=== PATIENT | female | born 2000 | race Caucasian/White ===

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

== ENCOUNTER 2019-01-25 09:02 | Day surgery (SDC) | payer BC, OTHER ==
[2019-01-23 11:32] VITALS: BMI 20.5
--- NOTE | 2019-01-24 18:56 | P.HPOB ---
History of Present Illness H&P Date: 01/24/19 Chief Complaint: Pelvic pain Patient is a 19-year-old female with complaint of chronic pelvic pain. On initial evaluation she was having pain that was intermittent sharp and stabbing with irregular spotting every month for approximately 3 weeks. She has been taking oral contraceptives with no relief or change in symptomatology as well as nonsteroidal anti-inflammatories. Ultrasounds from before also showed potential for a polyp in her cervix but none was seen on subsequent ultrasound and I didn't see any on exam. After lengthy discussion and follow-up evaluation approximately 3 months following control pill NSAIDs she is interested in diagnostic laparoscopy to have a diagnosis of that we can produce a long-term treatment plan. We did discuss possibly changing medications or and P recovery Lupron Depo-Provera she would prefer a laparoscopy to have a diagnosis, we did discuss possible ablation of endometrial implants if there were a few endometrial implants but they're significant pathology we would either rescheduled for a later date for a robotic-assisted procedure were prefer her to pelvic pain specialist. Risks/benefits/alternatives to this procedure were discussed with the patient in detail and did include but were not limited to bleeding and infection, damage to bladder, damage to bowel, vascular degrees nerve injuries potential fallopian tube injury based on endometriosis if there is approximate 2 fallopian tube. Ureteral injuries were also possibility as's with any surgical procedure. Past Medical History Past Medical History: Asthma, GERD/Reflux, Hearing Disorder / Deafness Additional Past Medical History / Comment(s): Mononucleosis, recent cellulitis and dermatitis. Difficulty hearing sometimes. History of Any Multi-Drug Resistant Organisms: None Reported Past Surgical History: Appendectomy, Ear Surgery, Tonsillectomy Additional Past Surgical History / Comment(s): Tubes in ears X5, wisdom teeth removed. Past Anesthesia/Blood Transfusion Reactions: No Reported Reaction Past Psychological History: ADD/ADHD, Anxiety, Depression Smoking Status: Never smoker Past Alcohol Use History: None Reported Past Drug Use History: None Reported - Past Family History Mother Family Medical History: Blood Disorder, Cancer, CVA/TIA, Deep Vein Thrombosis (DVT), Pulmonary Embolus Medications and Allergies Home Medications Medication Instructions Recorded Confirmed Type Albuterol Sulfate [Ventolin HFA] 1 - 2 puff INHALATION Q6H PRN 09/09/13 01/23/19 History Atomoxetine HCl [Strattera] 40 mg PO QAM 01/23/19 01/23/19 History Control Pill 1 tab PO HS 01/23/19 01/23/19 History Allergies Allergy/AdvReac Type Severity Reaction Status Date / Time amoxicillin [Amoxicillin] Allergy Rash/Hives Verified 01/23/19 11:08 Penicillins Allergy Rash/Hives Verified 01/23/19 11:08 Exam Osteopathic Statement: *. No significant issues noted on an osteopathic structural exam other than those noted in the History and Physical/Consult. - OBG Physical Exam Breast: both: normal (no masses) Abdomen: bowel sounds normal, no diffuse tenderness, no bruit present, no guarding noted, no hepatomegaly, no splenomegaly, no mass Vulva: both: normal Vagina: normal moisture, no discharge Cervix: no lesion, no discharge Uterus: normal size, normal contour Adnexa: both: normal Anus/Rectum: normal perianal skin, no rectal mass, no hemorrhoids, heme negative
[~2019-01-25 09:02] MED LIST: DEXAMETHASONE SOD PHOSPHATE 10 MG/ML 1 ML VIAL IV ONE; LACTATED RINGERS 1,000 ML IV SCH; LIDOCAINE 1% 20 ML VIAL (10MG/ML) FOR IV START INTRADERMA PRN; MIDAZOLAM 2 MG/2 ML VIAL IV PRN; ONDANSETRON 4 MG/2 ML VIAL IVP ONE; Pre Op ABX Message 1 EACH MISC MISCELLANE ONE; fentaNYL (PF) 50 MCG/ML 2 ML AMP IV PRN
[2019-01-25] MEDS ORDERED: SCOPOLAMINE 1.5MG/72HR PATCH TRANSDERM ONE (10:09)
[2019-01-25] MEDS ORDERED: MIDAZOLAM 2 MG/2 ML VIAL ONE (10:41)
[2019-01-25] MEDS ORDERED: GLYCOPYRROLATE 0.2 MG/ML 2 ML VIAL ONE (10:41)
[2019-01-25] MEDS ORDERED: ROCURONIUM BROMIDE 10 MG/ML 10 ML VIAL IV ONE (10:41)
[2019-01-25] MEDS ORDERED: LIDOCAINE 1% INJ 10MG/ML (20 ML MDV) ONE (10:41)
[2019-01-25] MEDS ORDERED: PROPOFOL 10 MG/ML 20 ML VIAL IV ONE (10:41)
[2019-01-25] MEDS ORDERED: fentaNYL (PF) 50 MCG/ML 2 ML AMP ONE (10:41)
[2019-01-25] MEDS ORDERED: NEOSTIGMINE 1 MG/ML 10 ML VIAL ONE (10:41)
[2019-01-25] MEDS ORDERED: BUPIVACAINE (PF) 0.25% 30 ML VIAL SQ ONE (11:25)
--- NOTE | 2019-01-25 11:46 | P.OP ---
Date of Procedure: 01/25/19 Preoperative Diagnosis: Pelvic pain and possible endometrial polyp Postoperative Diagnosis: Same with stage I endometriosis. No polyp noted Procedure(s) Performed: Diagnostic laparoscopy with electro fulguration of endometrial implants and hysteroscopy with gentle exploration for polyps Anesthesia: WEN Surgeon: Yovani Stewart Estimated Blood Loss (ml): 5 Urine output (ml): 100 Pathology: other (Endometrial biopsy) Condition: stable Disposition: same day Operative Findings: 3 separate small endometrial implants to dark red in 1 lesion were noted in the posterior cul-de-sac some mild scarring along the left paraovarian area, however no Clifford Ivana changes Description of Procedure: patient states the operating suite where a general anesthetic was found be adequate. She was prepped and draped in normal sterile fashion and placed in the dorsal lithotomy position. Initially a speculum was inserted into the vagina and the anterior lip surface identified grasped with an Allis clamp. It was then dilated and a uterine manipulator was inserted without difficulty. Red rubber catheter was then used to drain the bladder of urine and close were changed. Attention was then turned to abdominal portion procedure where 2 mL of quarter percent Marcaine was injected periumbilically and through this injected anesthetic a 5 mm skin incision was made. This incision was then entered with a 5 mm trocar and sleeve under direct visualization with an optical trocar. Once peritoneal placement was assured gas was allowed to fully insufflate the abdomen and patient's placement steep Trendelenburg position. Second 5 mm skin incision was then made in the midline 3 cm above the pubic symphysis and 5 mm port and sleeve were inserted through this incision under direct visualization. Once this was completed complete evaluation the pelvis and abdomen was performed. It is still area was well healed from her prior surgery liver and gallbladder appeared unremarkable there was some mild scarring along the left paraovarian fossa but no Clifford Ivana changes. Right ovarian fossa was normal. In the posterior cul-de-sac there was one clear vesicular lesion between the uterosacral ligaments and then deep in the cul-de-sac along the just behind the cervical area there were 2 dark red endometrial implants. A J-hook was then brought in and like to cautery of these lesions was performed. It is noted that the uterus is somewhat boggy. This could be technical support representative of adenomyosis but also may simply be where she is at in her cycle. If this is adenomyosis this is a challenging case as she is very young and has not had a baby and would need to likely find alternatives to control her pain. No other gross findings are noted therefore incidents removed and gas was allowed to expel from the abdomen. 5 deep breaths were provided during this process and then ports were removed and incisions were closed subcuticularly with 4-0 Vicryl. Another 5 or 6 mL of quarter percent Marcaine was injected around these incisions. Once completed we did return to the vagina manipulator was removed speculum was reinserted and Allis clamp was used to grasp the cervix. Cervix was dilated again minimally and a hysteroscope was inserted and direct visualization of endometrium was done. No pathologies noted no polyps were noted in the endometrium all of the tissue was proliferative. Polyp forceps was then used following removal of the camera to gently pull some of the proliferative tissue and make sure that there was no polyp that couldn't be visualized. This tissue was collected placed on Telfa and sent to pathology for evaluation. Once this was accomplished all instruments removed. Sponge, lap, needle counts were correct 2. Patient was then taken to the recovery room in stable and satisfactory condition. Plan - Discharge Summary Discharge Rx Participant: No New Discharge Prescriptions: New Ibuprofen [Motrin] 600 mg PO Q6HR PRN #30 tab PRN Reason: Pain HYDROcodone/APAP 5-325MG [[place] 5-325] 1 tab PO Q4HR PRN #30 tab PRN Reason: Pain No Action Albuterol Sulfate [Ventolin HFA] 1 - 2 puff INHALATION Q6H PRN PRN Reason: Shortness Of Breath Control Pill 1 tab PO HS Atomoxetine HCl [Strattera] 40 mg PO QAM Discharge Medication List Albuterol Sulfate [Ventolin HFA] 1 - 2 puff INHALATION Q6H PRN 09/09/13 [History] Atomoxetine HCl [Strattera] 40 mg PO QAM 01/23/19 [History] Control Pill 1 tab PO HS 01/23/19 [History] HYDROcodone/APAP 5-325MG [[place] 5-325] 1 tab PO Q4HR PRN #30 tab 01/25/19 [Rx] Ibuprofen [Motrin] 600 mg PO Q6HR PRN #30 tab 01/25/19 [Rx] Follow up Appointment(s)/Referral(s): Yovani Stewart DO [Doctor of Osteopathic Medicine] - 10 Days Patient Instructions/Handouts: *Surgery [facility] - Scopalamine Patch Instructions Activity/Diet/Wound Care/Special Instructions: No heavy lifting today, limit stairs and no driving today pelvic rest. If any high temperatures, heavy bleeding, or severe pain call my office Discharge Disposition: HOME SELF-CARE
[2019-01-25 12:09] VITALS: TEMP 97.6
[2019-01-25] MEDS: HYDROmorphone 0.5 MG/0.5 ML SYRINGE IVP PRN ×4 (12:22→12:47)
[2019-01-25] MEDS ORDERED: LACTATED RINGERS 1,000 ML IV ONE (12:29)
[2019-01-25] MEDS ORDERED: diphenhydrAMINE 50 MG/ML 1 ML VIAL IVP ONE (12:44)
[2019-01-25] MEDS ORDERED: MIDAZOLAM (PF) 2 MG/2 ML VIAL IVP ONE (12:55)
[2019-01-25] MEDS ORDERED: fentaNYL (PF) 50 MCG/ML 2 ML AMP IVP ONE (12:57)
[2019-01-25 13:01] VITALS: RESP 16
[2019-01-25] MEDS ORDERED: HYDROcodone/APAP 5-325MG 1 EACH TAB PO ONE (14:24)
[2019-01-25 15:07] VITALS: BP 101/65; PULSE 75
== END 2019-01-25 16:13 | disposition home or self-care (01) ==
LOC: OR 09:02
PROVIDERS: ATTEND Obstetrics & Gynecology
DX: N84.1 Polyp of cervix uteri (principal); N80.9 Endometriosis, unspecified; J45.909 Unspecified asthma, uncomplicated; K21.9 Gastro-esophageal reflux disease without esophagitis; H91.90 Unspecified hearing loss, unspecified ear; F90.9 Attention-deficit hyperactivity disorder, unspecified type; F41.9 Anxiety disorder, unspecified; F32.9 Major depressive disorder, single episode, unspecified; Z79.3 Long term (current) use of hormonal contraceptives; Z79.899 Other long term (current) drug therapy; Z97.5 Presence of (intrauterine) contraceptive device; Z88.0 Allergy status to penicillin; Z88.5 Allergy status to narcotic agent
CPT/HCPCS: 88305; 84703; 58558; 58662; J2250 ×2; J1200; J1100; J2710; J2405; J2001; J3010; J2704; J1170

== ENCOUNTER 2020-04-15 15:30 | Emergency (ER) | payer BC, OTHER ==
[2020-04-15 15:36] VITALS: PULSE 102; TEMP 98.2
[2020-04-15] MEDS ORDERED: METOCLOPRAMIDE 5 MG/ML 2 ML VIAL IVP STA (16:03)
[2020-04-15] MEDS ORDERED: diphenhydrAMINE 50 MG/ML 1 ML VIAL IVP STA (16:03)
[2020-04-15] MEDS ORDERED: SODIUM CHLORIDE 0.9% 1,000 ML IV STA (16:05)
[2020-04-15 16:37] LABS: Basophils # (A) 0.1 k/uL (0-0.2); Basophils % (A) 1 %; Eosinophils # (A) 0.2 k/uL (0-0.7); Eosinophils % (A) 2 %; HCT 44.7 % (34.0-46.0); HGB 14.8 gm/dL (11.4-16.0); Lymphocytes # (A) 2.2 k/uL (1.0-4.8); Lymphocytes % (A) 20 %; MCV 84.6 fL (80.0-100.0); Monocytes # (A) 0.5 k/uL (0-1.0); Monocytes % (A) 4 %; Neutrophils # (A) 7.7 k/uL (1.3-7.7); Neutrophils % (A) 72 %; Platelet Count 330 k/uL (150-450); RBC 5.29 m/uL (3.80-5.40); WBC 10.7 k/uL (3.8-10.6)
[2020-04-15 16:46] LABS: ALT 13 U/L (4-34); AST 24 U/L (14-36); African American GFR (CKD) >90 (>60 ml/min/1.73 sqM); Albumin 4.7 g/dL (3.5-5.0); Alkaline Phosphatase 71 U/L (38-126); Anion Gap 8 mmol/L; Blood Urea Nitrogen 9 mg/dL (7-17); Calcium 10.1 mg/dL (8.4-10.2); Carbon Dioxide 26 mmol/L (22-30); Chloride 105 mmol/L (98-107); Glucose 80 mg/dL (74-99); Non-African American GFR(CKD) >90 (>60 ml/min/1.73 sqM); Potassium 4.4 mmol/L (3.5-5.1); Sodium 139 mmol/L (137-145); Total Bilirubin 0.6 mg/dL (0.2-1.3)
[2020-04-15 17:15] LABS: Amorphous Sediment,Urine Rare /hpf; Appearance,Urine Clear (Clear); Bacteria,Urine Few /hpf; Bilirubin,Urine Negative (Negative); Blood,Urine Trace (Negative); Color,Urine Yellow; Glucose,Urine (UA) Negative (Negative); Hyaline Casts,Urine 1 /lpf (0-2); Ketones,Urine Negative (Negative); Leukocyte Esterase,Urine Negative (Negative); Mucus,Urine Many /hpf; Nitrite,Urine Negative (Negative); Protein,Urine Trace (Negative); RBC,Urine 3 /hpf (0-5); Specific Gravity,Urine 1.025 (1.001-1.035); Squamous Epithelial Cell,Urine 1 /hpf (0-4); Urobilinogen,Urine <2.0 mg/dL (<2.0); WBC,Urine 4 /hpf (0-5)
--- NOTE | 2020-04-15 17:15 | ED ---
General Adult HPI - General Chief complaint: Recheck/Abnormal Lab/Rx Stated complaint: Tremors,Headache Time Seen by Provider: 04/15/20 15:39 Source: patient Mode of arrival: ambulatory Limitations: no limitations - History of Present Illness Initial comments: Patient is a 20-year-old female with history of migraines presenting to the emergency department with multiple chief complaints. Patient states she was started on nexplenon since March. Patient reports over the last week she has developed some muscle twitches in her bilateral upper extremities along with a gradual onset headache. Without any photosensitivity, nausea or vomiting or visual disturbances. Patient went to see today who was concerned by her symptoms and removed the nexplenon. Patient was advised to come to emergency department for evaluation. Patient states this is not the worst headache of her life. Patient states she has been slightly more forgetful over the last week but denies any gait instability. She also reports having heart palpitations. Patient denies any chest pain or shortness of breath, one-sided weakness or paresthesias. - Related Data Home Medications Medication Instructions Recorded Confirmed Albuterol Sulfate [Ventolin HFA] 1 - 2 puff INHALATION Q6H PRN 09/09/13 01/25/19 Atomoxetine HCl [Strattera] 40 mg PO QAM 01/23/19 01/25/19 Control Pill 1 tab PO HS 01/23/19 01/25/19 Previous Rx's Medication Instructions Recorded HYDROcodone/APAP 5-325MG [[place] 1 tab PO Q4HR PRN #30 tab 01/25/19 5-325] Ibuprofen [Motrin] 600 mg PO Q6HR PRN #30 tab 01/25/19 Ondansetron Odt [Zofran Odt] 4 mg PO Q8HR PRN #10 tab 04/15/20 Allergies Allergy/AdvReac Type Severity Reaction Status Date / Time amoxicillin [Amoxicillin] Allergy Rash/Hives Verified 04/15/20 15:36 Penicillins Allergy Rash/Hives Verified 04/15/20 15:36 morphine AdvReac Nausea & Verified 04/15/20 15:36 Vomiting Review of Systems ROS Statement: Those systems with pertinent positive or pertinent negative responses have been documented in the HPI. ROS Other: All systems not noted in ROS Statement are negative. Past Medical History Past Medical History: Asthma, GERD/Reflux, Hearing Disorder / Deafness Additional Past Medical History / Comment(s): Mononucleosis, recent cellulitis and dermatitis. Difficulty hearing sometimes. History of Any Multi-Drug Resistant Organisms: None Reported Past Surgical History: Appendectomy, Ear Surgery, Tonsillectomy Additional Past Surgical History / Comment(s): Tubes in ears X5, wisdom teeth removed. Past Anesthesia/Blood Transfusion Reactions: No Reported Reaction Past Psychological History: ADD/ADHD, Anxiety, Depression Smoking Status: Never smoker Past Alcohol Use History: None Reported Past Drug Use History: None Reported - Past Family History Mother Family Medical History: Blood Disorder, Cancer, CVA/TIA, Deep Vein Thrombosis (DVT), Pulmonary Embolus General Exam Limitations: no limitations General appearance: alert, in no apparent distress Head exam: Present: atraumatic, normocephalic, normal inspection Eye exam: Present: normal appearance, PERRL, EOMI Pupils: Present: normal accommodation ENT exam: Present: normal exam, normal oropharynx, mucous membranes moist, TM's normal bilaterally, normal external ear exam Neck exam: Present: normal inspection, full ROM. Absent: tenderness Respiratory exam: Present: normal lung sounds bilaterally. Absent: respiratory distress, wheezes, rales Cardiovascular Exam: Present: regular rate, normal rhythm, normal heart sounds. Absent: systolic murmur, diastolic murmur GI/Abdominal exam: Present: soft. Absent: distended, tenderness, guarding, rebound Extremities exam: Present: normal inspection, full ROM, normal capillary refill, other (+2 ulnar and radial possible laterally. +2 dorsalis pedis obstructive as bilateral.). Absent: tenderness, pedal edema, joint swelling, calf tenderness Back exam: Present: normal inspection, full ROM. Absent: tenderness, CVA tenderness (R), CVA tenderness (L) Neurological exam: Present: alert, oriented X3, CN II-XII intact, normal gait Expanded Patient oriented to: Present: person, place, time Speech: Present: fluid speech Cranial nerves: EOM's Intact: Normal, Gag Reflex: Normal, Tongue Deviation: Normal, Nystagmus: Normal, Facial Sensation: Normal Cerebellar function: Finger to Nose: Normal Upper motor neuron: Pronator Drift: Normal Sensory exam: Upper Extremity Light Touch: Normal, Lower Extremity Light Touch: Normal Motor strength exam: RUE: 5, LUE: 5, RLE: 5, LLE: 5 DTR: Bicep (R): 4+, Bicep (L): 4+, Tricep (R): 4+, Tricep (L): 4+, Patellar (R): 4+, Patellar (L): 4+, Achilles Tendon (R): 4+, Achilles Tendon (L): 4+ Psychiatric exam: Present: normal affect, normal mood. Absent: depressed, agitated Skin exam: Present: warm, dry, intact, normal color Course Vital Signs 04/15/20 04/15/20 04/15/20 15:32 17:00 18:48 Temperature 98.2 F 98.2 F Pulse Rate 102 H 102 H Respiratory 20 18 18 Rate Blood Pressure 155/100 130/90 120/71 O2 Sat by Pulse 99 100 99 Oximetry EKG Findings - EKG Comments: EKG Findings:: Sinus rhythm, S1 Q3 T3. Trickily rate 84, [place] 152, QRS 84, QTC 411 Medical Decision Making - Medical Decision Making 20-year-old female with history of migraines presenting to the emergency depart ment with multiple chief complaints. On physical examination, patient did appear to have bilateral upper extremity sudden twitches. Although this did not appear to be like a typical tremor. Neurological examination is unremarkable. EKG did show changes [id number] so d-dimer was obtained which was negative. Patient did not have any chest pain or shortness of breath. CBC and CMP is unremarkable. Coags within normal limits. Troponin is negative. UA is unremarkable and patient is not . CT of the brain obtained shows no acute processes. Patient was given IV fluids Reglan and Benadryl. On reevaluation, patient reports improvement in symptoms and states her headache has resolved. The obvious muscle twitches is also completely resolved. Strict return parameters were thoroughly discussed with patient is understanding and agreeable. Case discussed with who is agreeable with the discharge plan. - Lab Data Result diagrams: 04/15/20 16:24 04/15/20 16:29 Lab Results 04/15/20 04/15/20 04/15/20 Range/Units 16:24 16:29 16:29 WBC 10.7 H (3.8-10.6) k/uL RBC 5.29 (3.80-5.40) m/uL Hgb 14.8 (11.4-16.0) gm/dL Hct 44.7 (34.0-46.0) % MCV 84.6 (80.0-100.0) fL MCH 28.0 (25.0-35.0) pg MCHC 33.0 (31.0-37.0) g/dL RDW 13.0 (11.5-15.5) % Plt Count 330 (150-450) k/uL MPV 7.0 Neutrophils % 72 % Lymphocytes % 20 % Monocytes % 4 % Eosinophils % 2 % Basophils % 1 % Neutrophils # 7.7 (1.3-7.7) k/uL Lymphocytes # 2.2 (1.0-4.8) k/uL Monocytes # 0.5 (0-1.0) k/uL Eosinophils # 0.2 (0-0.7) k/uL Basophils # 0.1 (0-0.2) k/uL PT 10.0 (9.0-12.0) sec INR 1.0 (<1.2) APTT 20.9 L (22.0-30.0) sec D-Dimer (<0.60) mg/L FEU Sodium 139 (137-145) mmol/L Potassium 4.4 (3.5-5.1) mmol/L Chloride 105 (98-107) mmol/L Carbon Dioxide 26 (22-30) mmol/L Anion Gap 8 mmol/L BUN 9 (7-17) mg/dL Creatinine 0.52 (0.52-1.04) mg/dL Est GFR (CKD-EPI)AfAm >90 (>60 ml/min/1.73 sqM) Est GFR (CKD-EPI)NonAf >90 (>60 ml/min/1.73 sqM) Glucose 80 (74-99) mg/dL Calcium 10.1 (8.4-10.2) mg/dL Total Bilirubin 0.6 (0.2-1.3) mg/dL AST 24 (14-36) U/L ALT 13 (4-34) U/L Alkaline Phosphatase 71 (38-126) U/L Troponin I (0.000-0.034) ng/mL Total Protein 8.0 (6.3-8.2) g/dL Albumin 4.7 (3.5-5.0) g/dL Urine Color Urine Appearance (Clear) Urine pH (5.0-8.0) Ur Specific [place] (1.001-1.035) Urine Protein (Negative) Urine Glucose (UA) (Negative) Urine Ketones (Negative) Urine Blood (Negative) Urine Nitrite (Negative) Urine Bilirubin (Negative) Urine Urobilinogen (<2.0) mg/dL Ur Leukocyte Esterase (Negative) Urine RBC (0-5) /hpf Urine WBC (0-5) /hpf Ur Squamous Epith Cells (0-4) /hpf Amorphous Sediment (None) /hpf Urine Bacteria (None) /hpf Hyaline Casts (0-2) /lpf Urine Mucus (None) /hpf Urine HCG, Qual (Not Detectd) 04/15/20 04/15/20 04/15/20 Range/Units 16:29 16:29 16:38 WBC (3.8-10.6) k/uL RBC (3.80-5.40) m/uL Hgb (11.4-16.0) gm/dL Hct (34.0-46.0) % MCV (80.0-100.0) fL MCH (25.0-35.0) pg MCHC (31.0-37.0) g/dL RDW (11.5-15.5) % Plt Count (150-450) k/uL MPV Neutrophils % % Lymphocytes % % Monocytes % % Eosinophils % % Basophils % % Neutrophils # (1.3-7.7) k/uL Lymphocytes # (1.0-4.8) k/uL Monocytes # (0-1.0) k/uL Eosinophils # (0-0.7) k/uL Basophils # (0-0.2) k/uL PT (9.0-12.0) sec INR (<1.2) APTT (22.0-30.0) sec D-Dimer 0.40 (<0.60) mg/L FEU Sodium (137-145) mmol/L Potassium (3.5-5.1) mmol/L Chloride (98-107) mmol/L Carbon Dioxide (22-30) mmol/L Anion Gap mmol/L BUN (7-17) mg/dL Creatinine (0.52-1.04) mg/dL Est GFR (CKD-EPI)AfAm (>60 ml/min/1.73 sqM) Est GFR (CKD-EPI)NonAf (>60 ml/min/1.73 sqM) Glucose (74-99) mg/dL Calcium (8.4-10.2) mg/dL Total Bilirubin (0.2-1.3) mg/dL AST (14-36) U/L ALT (4-34) U/L Alkaline Phosphatase (38-126) U/L Troponin I <0.012 (0.000-0.034) ng/mL Total Protein (6.3-8.2) g/dL Albumin (3.5-5.0) g/dL Urine Color Yellow Urine Appearance Clear (Clear) Urine pH 6.0 (5.0-8.0) Ur Specific [place] 1.025 (1.001-1.035) Urine Protein Trace H (Negative) Urine Glucose (UA) Negative (Negative) Urine Ketones Negative (Negative) Urine Blood Trace H (Negative) Urine Nitrite Negative (Negative) Urine Bilirubin Negative (Negative) Urine Urobilinogen <2.0 (<2.0) mg/dL Ur Leukocyte Esterase Negative (Negative) Urine RBC 3 (0-5) /hpf Urine WBC 4 (0-5) /hpf Ur Squamous Epith Cells 1 (0-4) /hpf Amorphous Sediment Rare H (None) /hpf Urine Bacteria Few H (None) /hpf Hyaline Casts 1 (0-2) /lpf Urine Mucus Many H (None) /hpf Urine HCG, Qual (Not Detectd) 04/15/20 Range/Units 16:38 WBC (3.8-10.6) k/uL RBC (3.80-5.40) m/uL Hgb (11.4-16.0) gm/dL Hct (34.0-46.0) % MCV (80.0-100.0) fL MCH (25.0-35.0) pg MCHC (31.0-37.0) g/dL RDW (11.5-15.5) % Plt Count (150-450) k/uL MPV Neutrophils % % Lymphocytes % % Monocytes % % Eosinophils % % Basophils % % Neutrophils # (1.3-7.7) k/uL Lymphocytes # (1.0-4.8) k/uL Monocytes # (0-1.0) k/uL Eosinophils # (0-0.7) k/uL Basophils # (0-0.2) k/uL PT (9.0-12.0) sec INR (<1.2) APTT (22.0-30.0) sec D-Dimer (<0.60) mg/L FEU Sodium (137-145) mmol/L Potassium (3.5-5.1) mmol/L Chloride (98-107) mmol/L Carbon Dioxide (22-30) mmol/L Anion Gap mmol/L BUN (7-17) mg/dL Creatinine (0.52-1.04) mg/dL Est GFR (CKD-EPI)AfAm (>60 ml/min/1.73 sqM) Est GFR (CKD-EPI)NonAf (>60 ml/min/1.73 sqM) Glucose (74-99) mg/dL Calcium (8.4-10.2) mg/dL Total Bilirubin (0.2-1.3) mg/dL AST (14-36) U/L ALT (4-34) U/L Alkaline Phosphatase (38-126) U/L Troponin I (0.000-0.034) ng/mL Total Protein (6.3-8.2) g/dL Albumin (3.5-5.0) g/dL Urine Color Urine Appearance (Clear) Urine pH (5.0-8.0) Ur Specific [place] (1.001-1.035) Urine Protein (Negative) Urine Glucose (UA) (Negative) Urine Ketones (Negative) Urine Blood (Negative) Urine Nitrite (Negative) Urine Bilirubin (Negative) Urine Urobilinogen (<2.0) mg/dL Ur Leukocyte Esterase (Negative) Urine RBC (0-5) /hpf Urine WBC (0-5) /hpf Ur Squamous Epith Cells (0-4) /hpf Amorphous Sediment (None) /hpf Urine Bacteria (None) /hpf Hyaline Casts (0-2) /lpf Urine Mucus (None) /hpf Urine HCG, Qual Not Detected (Not Detectd) Disposition Clinical Impression: Headache Disposition: HOME SELF-CARE Condition: Stable Instructions (If sedation given, give patient instructions): Migraine Headache (ED) Additional Instructions: Take medication as directed. Follow with her primary care physician. Return to emergency department if symptoms worsen. Prescriptions: Ondansetron Odt [Zofran Odt] 4 mg PO Q8HR PRN #10 tab PRN Reason: Nausea Is patient prescribed a controlled substance at d/c from ED?: No Referrals: Mikey Anaya MD [Primary Care Provider] - 1-2 days Time of Disposition: 18:30
[2020-04-15 17:20] LABS: Partial Thromboplastin Time 20.9 sec (22.0-30.0)
[2020-04-15 17:27] VITALS: RESP 18
--- NOTE | 2020-04-15 17:46 | CT ---
EXAMINATION TYPE: CT brain wo con DATE OF EXAM: 04/15/2020 COMPARISON: CT brain February 04, 2015 HISTORY: headache CT DLP: 996 mGycm. Automated Exposure Control for Dose Reduction was Utilized. TECHNIQUE: CT scan of the head is performed without contrast. FINDINGS: There is no acute intracranial hemorrhage, mass effect, or midline shift identified. The ventricles and sulci are within normal limits in size. Becker-white matter differentiation is maintai silke. Stable slightly low-lying cerebellar tonsils but not greater than 5 mm inferior descent. Patchy opacification bilateral mastoid air cells redemonstrated favoring retained secretions. Correlate clin ically to exclude mastoiditis. The globes are intact and the visualized sinuses are clear. IMPRESSION: No acute intracranial hemorrhage or midline shift is seen. No significant change from pr ior study.
[2020-04-15 18:52] VITALS: BP 120/71
== END 2020-04-15 18:51 | disposition home or self-care (01) ==
LOC: EC 15:30
DX: R51.9 Headache, unspecified (principal); J45.909 Unspecified asthma, uncomplicated; H91.90 Unspecified hearing loss, unspecified ear; F90.9 Attention-deficit hyperactivity disorder, unspecified type; F32.9 Major depressive disorder, single episode, unspecified; Z79.3 Long term (current) use of hormonal contraceptives; Z79.899 Other long term (current) drug therapy; Z88.0 Allergy status to penicillin; Z88.5 Allergy status to narcotic agent
CPT/HCPCS: 36415; 93005; 85379; 80053; 84484; 85025; 85610; 85730; 81001; 81025; 70450; 99284; 96374; 96375; 96361; J1200; J2765

== ENCOUNTER → 2020-05-08 | Outpatient (CLI) | payer OTHER ==
--- NOTE | 2020-05-08 09:07 | US ---
EXAMINATION TYPE: US abdomen complete DATE OF EXAM: 05/08/2020 COMPARISON: NONE CLINICAL HISTORY: R10.9 Abd pain. abd pain ongoing since age 12, she has reactive mono and feels LUQ pain EXAM MEASUREMENTS: Liver Length: 13.7 cm Gallbladder Wall: 0.2 cm CBD: 0.4 cm Spleen: 11.5 cm Right Kidney: 10.0 x 4.2 x 4.5 cm Left Kidney: 10.4 x 4.6 x 5.8 cm Pancreas: wnl Liver: wnl Gallbladder: wnl Evidence for sonographic Hidalgo's sign: no CBD: wnl Spleen: wnl Right Kidney: wnl Left Kidney: wnl Upper IVC: wnl Abd Aorta: wnl IMPRESSION: 1. Normal abdomen ultrasound
== END | disposition home or self-care (01) ==
LOC: RADUSWWP 08:09
PROVIDERS: ATTEND Family Medicine
DX: R10.9 Unspecified abdominal pain (principal)
CPT/HCPCS: 76700

== ENCOUNTER → 2020-05-15 | Outpatient (CLI) | payer BC, OTHER ==
--- NOTE | 2020-05-16 09:19 | ECHOF ---
Referral Reason:R00.0 Sinus Tachycardia MEASUREMENTS -------- HEIGHT: 162.6 cm WEIGHT: 67.6 kg BP: RVIDd: 2.0 cm (< 3.3) IVSd: 1.0 cm (0.6 - 1.1) LVIDd: 4.0 cm (3.9 - 5.3) LVPWd: 1.1 cm (0.6 - 1.1) IVSs: 1.1 cm LVIDs: 2.9 cm LVPWs: 1.1 cm LA Diam: 3.1 cm (2.7 - 3.8) Ao Diam: 2.7 cm (2.0 - 3.7) AV Cusp: 1.5 cm (1.5 - 2.6) MV EXCURSION: 17.180 mm (> 18.000) MV EF SLOPE: 110 mm/s (70 - 150) EPSS: 0.4 cm MV E Ronald: 1.05 m/s MV DecT: 121 ms MV A Ronald: 0.65 m/s MV E/A Ratio: 1.61 RAP: 5.00 mmHg RVSP: 26.36 mmHg FINDINGS -------- Sinus rhythm. This was a technically good study. LV size, wall thickness and systolic function are normal, with an EF greater than 55%. The left chivo tricular size is normal. The right ventricle is normal in size. The left atrial size is normal. The right atrial size is normal. The aortic valve is trileaflet, and appears structurally normal. No aortic stenosis or regurgitation. Mild mitral regurgitation is present. Mild tricuspid regurgitation present. Right ventricular systolic pressure is normal at < 35 mmHg. There is no pulmonic regurgitation present. The aortic root size is normal. There is no pericardial effusion. CONCLUSIONS -------- 1. LV size, wall thickness and systolic function are normal, with an EF greater than 55%. 2. The left ventricular size is normal. 3. The right ventricle is normal in size. 4. The left atrial size is normal. 5. The right atrial size is normal. 6. Mild mitral regurgitation is present. 7. Mild tricuspid regurgitation present. 8. There is no pulmonic regurgitation present. 9. The aortic root size is normal. 10. There is no pericardial effusion. WRITER PRODUCER: Eva Shea RDCS
== END | disposition home or self-care (01) ==
LOC: RADECHMAIN 10:40
PROVIDERS: ATTEND Family Medicine
DX: I08.1 Rheumatic disorders of both mitral and tricuspid valves (principal)
CPT/HCPCS: 93306

== ENCOUNTER 2020-05-31 09:31 | Emergency (ER) | payer BC, OTHER ==
[2020-05-31] MEDS ORDERED: ONDANSETRON 4 MG/2 ML VIAL IVP STA (10:11)
[2020-05-31] MEDS ORDERED: SODIUM CHLORIDE 0.9% 500 ML 500 ML IV STA (10:11)
[2020-05-31] MEDS ORDERED: ALPRAZolam 0.25 MG TAB PO STA (10:29)
[2020-05-31 10:44] LABS: Basophils # (A) 0.1 k/uL (0-0.2); Basophils % (A) 1 %; Eosinophils # (A) 0.1 k/uL (0-0.7); Eosinophils % (A) 2 %; HCT 40.5 % (34.0-46.0); HGB 13.8 gm/dL (11.4-16.0); Lymphocytes # (A) 1.9 k/uL (1.0-4.8); Lymphocytes % (A) 22 %; MCH 28.8 pg (25.0-35.0); MCHC 34.1 g/dL (31.0-37.0); MCV 84.6 fL (80.0-100.0); Mean Platelet Volume 6.6; Monocytes # (A) 0.3 k/uL (0-1.0); Monocytes % (A) 4 %; Neutrophils % (A) 71 %; Platelet Count 314 k/uL (150-450); RBC 4.79 m/uL (3.80-5.40); RDW 13.2 % (11.5-15.5); WBC 8.5 k/uL (3.8-10.6)
[2020-05-31 10:48] LABS: Appearance,Urine Clear (Clear); Bilirubin,Urine Negative (Negative); Blood,Urine Negative (Negative); Color,Urine Colorless; Glucose,Urine (UA) Negative (Negative); Ketones,Urine Negative (Negative); Leukocyte Esterase,Urine Negative (Negative); Nitrite,Urine Negative (Negative); Protein,Urine Negative (Negative); Specific Gravity,Urine 1.004 (1.001-1.035); Urobilinogen,Urine <2.0 mg/dL (<2.0)
[2020-05-31 10:54] LABS: ALT 12 U/L (4-34); AST 19 U/L (14-36); African American GFR (CKD) >90 (>60 ml/min/1.73 sqM); Albumin 3.8 g/dL (3.5-5.0); Alkaline Phosphatase 60 U/L (38-126); Anion Gap 9 mmol/L; Blood Urea Nitrogen 8 mg/dL (7-17); Calcium 9.1 mg/dL (8.4-10.2); Carbon Dioxide 22 mmol/L (22-30); Chloride 102 mmol/L (98-107); Glucose 97 mg/dL (74-99); Non-African American GFR(CKD) >90 (>60 ml/min/1.73 sqM); Potassium 4.2 mmol/L (3.5-5.1); Sodium 133 mmol/L (137-145); Total Bilirubin 0.6 mg/dL (0.2-1.3); Total Protein 6.8 g/dL (6.3-8.2)
[2020-05-31 11:05] LABS: Amphetamine Screen,Urine Not Detected (NotDetected); Barbiturate Screen,Urine Not Detected (NotDetected); Benzodiazepines Screen,Urine Not Detected (NotDetected); Cocaine Screen,Urine Not Detected (NotDetected); Methadone Screen, Urine Not Detected (NotDetected); Opiate Screen,Urine Not Detected (NotDetected); Oxycodone Screen, Urine Not Detected (NotDetected); Phencyclidine Screen,Urine Not Detected (NotDetected); Tricyclic Antidepressant,Urine Not Detected (NotDetected); Urn Cannabinoid Scrn Not Detected (NotDetected)
--- NOTE | 2020-05-31 11:24 | ED ---
Abdominal Pain HPI - General Chief Complaint: Abdominal Pain Stated Complaint: numb all over Time Seen by Provider: 05/31/20 09:51 Source: patient Mode of arrival: ambulatory Limitations: no limitations - History of Present Illness Initial Comments: Patient is a 20-year-old female presenting to the emergency Department with complaints of some mild abdominal pain, left-sided flank pain that has been intermittent for the past few days. She states she is also been having fevers on and off for "2 months." Patient states she is also very shaky, nauseous and feels very anxious. When asked what she is anxious about, she states that she is not sure what wrong with her abdominal pain. She denies being as she is on control. She denies any fever or chills today. She denies any vomiting, no diarrhea. She denies any history of abdominal surgeries. She denies any cough, shortness of breath. Denies history of kidney stones. She has no further complaints at this time. - Related Data Home Medications Medication Instructions Recorded Confirmed Acetaminophen Tab [Tylenol Tab] 1,000 mg PO Q6HR PRN 05/31/20 05/31/20 Albuterol Sulfate [Proair Hfa] 2 puff INHALATION RT-Q4H PRN 05/31/20 05/31/20 Amethia 1 tab PO DAILY 05/31/20 05/31/20 Propranolol [Inderal] 10 mg PO TID 05/31/20 05/31/20 Allergies Allergy/AdvReac Type Severity Reaction Status Date / Time amoxicillin [Amoxicillin] Allergy Rash/Hives Verified 05/31/20 10:19 Penicillins Allergy Rash/Hives Verified 05/31/20 10:19 morphine AdvReac Nausea & Verified 05/31/20 10:19 Vomiting Review of Systems ROS Statement: Those systems with pertinent positive or pertinent negative responses have been documented in the HPI. ROS Other: All systems not noted in ROS Statement are negative. Past Medical History Past Medical History: Asthma, GERD/Reflux, Hearing Disorder / Deafness Additional Past Medical History / Comment(s): Mononucleosis, recent cellulitis and dermatitis. Difficulty hearing sometimes. History of Any Multi-Drug Resistant Organisms: None Reported Past Surgical History: Appendectomy, Ear Surgery, Tonsillectomy Additional Past Surgical History / Comment(s): Tubes in ears X5, wisdom teeth removed. Past Anesthesia/Blood Transfusion Reactions: No Reported Reaction Past Psychological History: ADD/ADHD, Anxiety, Depression Smoking Status: Never smoker Past Alcohol Use History: None Reported Past Drug Use History: None Reported - Past Family History Mother Family Medical History: Blood Disorder, Cancer, CVA/TIA, Deep Vein Thrombosis (DVT), Pulmonary Embolus General Exam - General Exam Comments Initial Comments: GENERAL: Patient is well-developed and well-nourished. Patient is nontoxic and in no acute distress, appears very anxious. HEAD: Atraumatic, normocephalic. EYES: Pupils equal round and reactive to light, extraocular movements intact, sclera anicteric, conjunctiva are normal. Eyelids were unremarkable. ENT: TMs normal, nares patent, oropharynx clear without exudates. Moist mucous membranes. NECK: Normal range of motion, supple without lymphadenopathy or JVD. LUNGS: Unlabored respirations. Breath sounds clear to auscultation bilaterally and equal. No wheezes rales or rhonchi. HEART: Regular rate and rhythm without murmurs, rubs or gallops. ABDOMEN: Mild left flank pain, lower suprapubic discomfort with palpation. Soft, normoactive bowel sounds. No guarding, no rebound. No masses appreciated. : Deferred MUSCULOSKELETAL: Normal extremities with adequate strength and normal range of motion, no pitting or edema. No clubbing or cyanosis. NEUROLOGICAL: Patient is alert and oriented x 3. Motor and sensory are also intact. Cranial nerves II through XII grossly intact. Symmetrical smile. Normal speech, normal gait. PSYCH: Patient's anxious. SKIN: Warm, Dry, normal turgor, no rashes or lesions noted. Limitations: no limitations Course Vital Signs 05/31/20 05/31/20 09:44 11:41 Temperature 98.9 F Pulse Rate 81 75 Respiratory 16 18 Rate Blood Pressure 129/86 118/74 O2 Sat by Pulse 97 99 Oximetry Medical Decision Making - Medical Decision Making Patient is a 20-year-old female here for left-sided flank pain as well as some mild suprapubic discomfort for the past few days. She was sent in by urgent care to rule out kidney stone. Patient is very anxious on exam. Vital signs are stable, she is afebrile. Patient's lab work is unremarkable, urine shows no evidence of infection, hCG is not detected. CT of the abdomen and pelvis shows no ureteral obstruction, mild right-sided hydronephrosis, nothing in the left side. Patient was given fluids, Zofran and a small dose of Xanax. She is resting currently. On reexamination she has no symptoms, no belly pain. Discussed these findings with the patient and patient's mother. She is stable for discharge. She can follow up with her regular physician. Patient is in agreement with this plan of care. Case discussed with Dr. Martinez. - Lab Data Result diagrams: 05/31/20 10:14 05/31/20 10:14 Lab Results 05/31/20 05/31/20 05/31/20 Range/Units 10:14 10:14 10:14 WBC 8.5 (3.8-10.6) k/uL RBC 4.79 (3.80-5.40) m/uL Hgb 13.8 (11.4-16.0) gm/dL Hct 40.5 (34.0-46.0) % MCV 84.6 (80.0-100.0) fL MCH 28.8 (25.0-35.0) pg MCHC 34.1 (31.0-37.0) g/dL RDW 13.2 (11.5-15.5) % Plt Count 314 (150-450) k/uL MPV 6.6 Neutrophils % 71 % Lymphocytes % 22 % Monocytes % 4 % Eosinophils % 2 % Basophils % 1 % Neutrophils # 6.0 (1.3-7.7) k/uL Lymphocytes # 1.9 (1.0-4.8) k/uL Monocytes # 0.3 (0-1.0) k/uL Eosinophils # 0.1 (0-0.7) k/uL Basophils # 0.1 (0-0.2) k/uL Sodium (137-145) mmol/L Potassium (3.5-5.1) mmol/L Chloride (98-107) mmol/L Carbon Dioxide (22-30) mmol/L Anion Gap mmol/L BUN (7-17) mg/dL Creatinine (0.52-1.04) mg/dL Est GFR (CKD-EPI)AfAm (>60 ml/min/1.73 sqM) Est GFR (CKD-EPI)NonAf (>60 ml/min/1.73 sqM) Glucose (74-99) mg/dL Calcium (8.4-10.2) mg/dL Total Bilirubin (0.2-1.3) mg/dL AST (14-36) U/L ALT (4-34) U/L Alkaline Phosphatase (38-126) U/L Total Protein (6.3-8.2) g/dL Albumin (3.5-5.0) g/dL Urine Color Colorless Urine Appearance Clear (Clear) Urine pH 6.0 (5.0-8.0) Ur Specific [place] 1.004 (1.001-1.035) Urine Protein Negative (Negative) Urine Glucose (UA) Negative (Negative) Urine Ketones Negative (Negative) Urine Blood Negative (Negative) Urine Nitrite Negative (Negative) Urine Bilirubin Negative (Negative) Urine Urobilinogen <2.0 (<2.0) mg/dL Ur Leukocyte Esterase Negative (Negative) Urine HCG, Qual Not Detected (Not Detectd) Urine Opiates Screen Not Detected (NotDetected) Ur Oxycodone Screen Not Detected (NotDetected) Urine Methadone Screen Not Detected (NotDetected) Ur Propoxyphene Screen Not Detected (NotDetected) Ur Barbiturates Screen Not Detected (NotDetected) U Tricyclic Antidepress Not Detected (NotDetected) Ur Phencyclidine Scrn Not Detected (NotDetected) Ur Amphetamines Screen Not Detected (NotDetected) U Methamphetamines Scrn Not Detected (NotDetected) U Benzodiazepines Scrn Not Detected (NotDetected) Urine Cocaine Screen Not Detected (NotDetected) U Marijuana (THC) Screen Not Detected (NotDetected) 05/31/20 Range/Units 10:14 WBC (3.8-10.6) k/uL RBC (3.80-5.40) m/uL Hgb (11.4-16.0) gm/dL Hct (34.0-46.0) % MCV (80.0-100.0) fL MCH (25.0-35.0) pg MCHC (31.0-37.0) g/dL RDW (11.5-15.5) % Plt Count (150-450) k/uL MPV Neutrophils % % Lymphocytes % % Monocytes % % Eosinophils % % Basophils % % Neutrophils # (1.3-7.7) k/uL Lymphocytes # (1.0-4.8) k/uL Monocytes # (0-1.0) k/uL Eosinophils # (0-0.7) k/uL Basophils # (0-0.2) k/uL Sodium 133 L (137-145) mmol/L Potassium 4.2 (3.5-5.1) mmol/L Chloride 102 (98-107) mmol/L Carbon Dioxide 22 (22-30) mmol/L Anion Gap 9 mmol/L BUN 8 (7-17) mg/dL Creatinine 0.54 (0.52-1.04) mg/dL Est GFR (CKD-EPI)AfAm >90 (>60 ml/min/1.73 sqM) Est GFR (CKD-EPI)NonAf >90 (>60 ml/min/1.73 sqM) Glucose 97 (74-99) mg/dL Calcium 9.1 (8.4-10.2) mg/dL Total Bilirubin 0.6 (0.2-1.3) mg/dL AST 19 (14-36) U/L ALT 12 (4-34) U/L Alkaline Phosphatase 60 (38-126) U/L Total Protein 6.8 (6.3-8.2) g/dL Albumin 3.8 (3.5-5.0) g/dL Urine Color Urine Appearance (Clear) Urine pH (5.0-8.0) Ur Specific [place] (1.001-1.035) Urine Protein (Negative) Urine Glucose (UA) (Negative) Urine Ketones (Negative) Urine Blood (Negative) Urine Nitrite (Negative) Urine Bilirubin (Negative) Urine Urobilinogen (<2.0) mg/dL Ur Leukocyte Esterase (Negative) Urine HCG, Qual (Not Detectd) Urine Opiates Screen (NotDetected) Ur Oxycodone Screen (NotDetected) Urine Methadone Screen (NotDetected) Ur Propoxyphene Screen (NotDetected) Ur Barbiturates Screen (NotDetected) U Tricyclic Antidepress (NotDetected) Ur Phencyclidine Scrn (NotDetected) Ur Amphetamines Screen (NotDetected) U Methamphetamines Scrn (NotDetected) U Benzodiazepines Scrn (NotDetected) Urine Cocaine Screen (NotDetected) U Marijuana (THC) Screen (NotDetected) Disposition Clinical Impression: Anxiety, Nausea, Abdominal pain Disposition: HOME SELF-CARE Condition: Stable Instructions (If sedation given, give patient instructions): Normal Exam (ED) Additional Instructions: Please return to the Emergency Department if symptoms worsen or any other concerns. Follow-up with your regular doctor as discussed. May take Tylenol or Motrin for discomfort. Is patient prescribed a controlled substance at d/c from ED?: No Referrals: Mikey Anaya MD [Primary Care Provider] - 1-2 days
[2020-05-31 11:42] VITALS: RESP 18
--- NOTE | 2020-05-31 12:07 | CT ---
EXAMINATION TYPE: CT abdomen pelvis wo con DATE OF EXAM: 05/31/2020 COMPARISON: Prior exam 01/12/2012 CT abdomen pelvis HISTORY: left flank pain CT DLP: 520.8 mGycm Automated exposure control for dose reduction was used. TECHNIQUE: Helical acquisition of images from the lung bases through the pelvis. FINDINGS: Lack of intravenous contrast could compromise sensitivity. LUNG BASES: No significant abnormality is appreciated. AORTA: No significant abnormality is appreciataed. LIVER/GB: No significant abnormality is appreciated. PANCREAS: No significant abnormality is seen. SPLEEN: No significant abnormality is seen. ADRENALS: No significant abnormality is seen. KIDNEYS: There is mild right-sided hydronephrosis. Punctate calcification is nonobstructive in the mi dpole calyx posteriorly in bilateral kidneys, axial image 41 on the left is suspected, axial image 52 on the right. There is no evident ureteral calculus. No evident left-sided renal calculus REPRODUCTIVE ORGANS: Uterus is somewhat bulky, consider fibroid uterus URINARY BLADDER: No significant abnormality is seen. BOWEL: No significant abnormality is seen. Appendix is not seen FREE AIR: No Free Air is visible. ASCITES: None visible. PELVIC ADENOPATHY: None visualized. RETROPERITONEAL ADENOPATHY: No Retroperitoneal Adenopathy visible. OSSEOUS STRUCTURES: No significant abnormality is seen. IMPRESSION: NEPHROLITHIASIS. NO EVIDENT URETERAL OBSTRUCTION, MILD RIGHT-SIDED HYDRONEPHROSIS SUSPECTED. POSSIBLE FIBROID UTERUS.
[2020-05-31 13:09] VITALS: BP 110/72; PULSE 70; TEMP 98.2
== END 2020-05-31 13:09 | disposition home or self-care (01) ==
LOC: EC 09:31
DX: F41.9 Anxiety disorder, unspecified (principal); R10.9 Unspecified abdominal pain; R11.0 Nausea; Z79.899 Other long term (current) drug therapy; Z88.0 Allergy status to penicillin; Z88.5 Allergy status to narcotic agent
CPT/HCPCS: 36415; 80053; 85025; 81003; 81025; 80306; 74176; 99284; 96374; 96361; J2405

== ENCOUNTER → 2020-06-16 | Outpatient (CLI) | payer BC, OTHER ==
[2020-06-17 02:20] LABS: Basophils # (A) 0.08 X 10*3/uL (0.00-0.10); Basophils % (A) 0.9 %; Eosinophils # (A) 0.13 X 10*3/uL (0.04-0.35); Eosinophils % (A) 1.5 %; HCT 42.5 % (37.2-46.3); HGB 13.1 g/dL (12.0-15.0); Lymphocytes # (A) 2.13 X 10*3/uL (0.90-5.00); MCH 27.6 pg (27.0-32.0); MCHC 30.8 g/dL (32.0-37.0); MCV 89.5 fL (80.0-97.0); Mean Platelet Volume 9.5 fL (9.5-12.2); Monocytes # (A) 0.82 X 10*3/uL (0.20-1.00); Monocytes % (A) 9.3 %; Neutrophils # (A) 5.63 X 10*3/uL (1.80-7.70); Neutrophils % (A) 63.5 %; Platelet Count 352 X 10*3/uL (140-440); RBC 4.75 X 10*6/uL (4.10-5.20); RDW 13.2 % (11.5-14.5); WBC 8.86 X 10*3/uL (4.50-10.00)
[2020-06-17 03:43] LABS: C Reactive Protein 0.4 mg/dL (0.0-0.8)
[2020-06-17 03:44] LABS: Albumin 4.6 g/dL (3.80-4.90); Albumin/Globulin Ratio 2.09 (1.60-3.17); Anion Gap 8.3 mmol/L (4.00-12.00); Calcium 9.2 mg/dL (8.7-10.3); Carbon Dioxide 23.7 mmol/L (21.6-31.8); Globulin 2.2 g/dL (1.6-3.3); Non-African American GFR(CKD) 130.3 (60.0-200.0); Potassium 4.4 mmol/L (3.5-5.5); Total Bilirubin 0.5 mg/dL (0.3-1.2); Total Protein 6.8 g/dL (6.2-8.2)
[2020-06-17 04:39] LABS: Erythrocyte Sedimentation Rate 6 mm/Hr (0-20)
== END | disposition home or self-care (01) ==
LOC: LABWHC1 15:59
PROVIDERS: ATTEND Family Medicine
DX: R50.9 Fever, unspecified (principal)
CPT/HCPCS: 36415; 80053; 85025; 85652; 86140; 87040

== ENCOUNTER 2020-07-22 11:28 | Day surgery (SDC) | payer BC, OTHER ==
[2020-07-17 12:50] VITALS: BMI 25.7
[~2020-07-22 11:28] MED LIST changes: -DEXAMETHASONE SOD PHOSPHATE 10 MG/ML 1 ML VIAL IV ONE; -LACTATED RINGERS 1,000 ML IV SCH; -LIDOCAINE 1% 20 ML VIAL (10MG/ML) FOR IV START INTRADERMA PRN; -MIDAZOLAM 2 MG/2 ML VIAL IV PRN; -ONDANSETRON 4 MG/2 ML VIAL IVP ONE; -Pre Op ABX Message 1 EACH MISC MISCELLANE ONE; +SODIUM CHLORIDE 0.9% 1,000 ML IV SCH; -fentaNYL (PF) 50 MCG/ML 2 ML AMP IV PRN
[2020-07-22] MEDS ORDERED: SODIUM CHLORIDE 0.9% 1,000 ML IV ONE (11:39)
[2020-07-22 15:17] VITALS: BP 114/76; PULSE 78; RESP 16; TEMP 98.6
--- NOTE | 2020-07-22 18:22 | P.EPPROC ---
- EP Procedure Note Electrophysiology Procedure Note: Diagnosis Presyncope and palpitations Twelve-lead EKG shows sinus rhythm normal PA narrow QRS normal ST segments Tilt table test per protocol Baseline blood pressure 113/61 mmHg Baseline heart rate 78 beats a minute Patient was tilted upright at an angle of 70 per protocol No change in heart rate and blood pressure She was laid supine at the end of the procedure Impression Normal twelve-lead EKG Normal heart rate and blood pressure response to upright tilting No evidence for neurocardiogenic syncope or postural tachycardia
== END 2020-07-22 13:55 | disposition home or self-care (01) ==
LOC: CATHEP 11:28
PROVIDERS: ATTEND Internal Medicine Clinical Cardiac Electrophysiology
DX: R55 Syncope and collapse (principal); R00.2 Palpitations; I73.9 Peripheral vascular disease, unspecified; Z79.3 Long term (current) use of hormonal contraceptives; Z79.899 Other long term (current) drug therapy; Z88.0 Allergy status to penicillin
CPT/HCPCS: 85652; 86140; 93660

== ENCOUNTER → 2020-07-23 | Outpatient (CLI) | payer BC, OTHER ==
--- NOTE | 2020-07-24 08:05 | CT ---
EXAMINATION TYPE: CT ChestAbdPelvis w con DATE OF EXAM: 07/23/2020 COMPARISON: CT abdomen pelvis May 31, 2020 and older studies. Ultrasound abdomen May 08, 2020 HISTORY: fatigue , pain, nausea, fever x [address] DLP: 1394 mGycm. Automated Exposure Control for Dose Reduction was Utilized. CONTRAST: CT scan of the thorax, abdomen and pelvis is performed with oral and with IV Contrast, patient inject ed with 100 mL of Isovue 300. FINDINGS: LUNGS: The lungs are grossly clear, there is no concerning parenchymal mass or nodule identified. T here is no pleural effusion or pneumothorax seen. The tracheobronchial tree is patent. MEDIASTINUM: There are no greater than 1 cm hilar or mediastinal lymph nodes. No cardiomegaly or pe ricardial effusion is seen. OTHER: Overlying bilateral metallic nipple ornaments are incidentally noted. LIVER/GB: There is 3.5 x 3.5 x 3.5 cm heterogeneous hyperdense lesion in the anterior right hepatic d ome axial series 3 image 45 corresponding to coronal image 29 that becomes more isodense on delayed p hased images, not clearly seen on prior studies noted above. PANCREAS: No significant abnormality is seen. SPLEEN: No significant abnormality is seen. ADRENALS: No significant abnormality is seen. KIDNEYS: There are single subcentimeter low dense lesions both kidneys series 7 image 33 too small to further characterize presumed benign simple cysts. BOWEL: Oral contrast reaches level of the proximal sigmoid colon. No suspicious small or large bowel dilatation. GENITAL ORGANS: Anteverted uterus extends to left of midline. LYMPH NODES: No greater than 1cm abdominal or pelvic lymph nodes are appreciated. OSSEOUS STRUCTURES: No significant abnormality is seen. OTHER: No significant additional abnormality is seen. IMPRESSION: 1. No acute findings are evident. 2. New 3.5 cm mass right hepatic dome is felt present, suspect FNH versus hepatic adenoma. Further in vestigation with liver protocol contrast-enhanced MRI is advised.
== END | disposition home or self-care (01) ==
LOC: RADCTMAIN 15:00
PROVIDERS: ATTEND Family Medicine
DX: R50.9 Fever, unspecified (principal)
CPT/HCPCS: 71260; 74177; Q9967

== ENCOUNTER → 2020-08-08 | Outpatient (CLI) | payer BC, OTHER ==
--- NOTE | 2020-08-09 02:32 | MR ---
EXAMINATION TYPE: MR liver wo/w con DATE OF EXAM: 08/08/2020 COMPARISON: None HISTORY: Hepatomegaly, not elsewhere classified. CONTRAST: Standard multiplanar, multisequence MRI departmental protocol utilizing 7 mL intravenous Gadavist matti olinium contrast. Multiplanar multiecho imaging of the abdomen was performed without and with IV contrast. Lung bases show no evidence of pleural effusion or pulmonary consolidation. Spleen is intact. There i s no evidence of pancreatic mass. Gallbladder appears intact. The bile ducts are not dilated. The veronica er has normal size and contour. Liver measures 15.5 cm. I see no evidence of hepatomegaly. There is no adrenal mass. Kidneys have normal size and contour. There is no hydronephrosis. There is no evidence of retroperitoneal adenopathy. Small bowel pattern is normal. I see no intestinal wall th ickening. There is no sign of ascites. The contrast images show 4 cm area of nodular enhancement involving the anterior right lobe of the li may. This appears to washout rapidly on the delayed images. There is normal enhancement of the portal venous system. There is normal enhancement of both kidneys. There is normal enhancement of the hepatic vein and inferior vena cava. IMPRESSION: 4 cm lesion in the anterior right lobe of the liver shows early arterial enhancement. No central scar seen. No delayed in filling. This lesion is isointense with the rest of the liver on the imaging seq uences and only seen essentially on contrast images. This Could be a focal nodular hyperplasia.
== END | disposition home or self-care (01) ==
LOC: RADMRIMAIN 16:34
PROVIDERS: ATTEND Nurse Practitioner Adult Health
DX: K76.9 Liver disease, unspecified (principal)
CPT/HCPCS: 74183; A9585

== ENCOUNTER → 2020-10-01 | Outpatient (CLI) | payer BC, OTHER ==
[2020-10-02 15:39] LABS: Gliadin AB IgA, Deaminated NEGATIVE (NEGATIVE); Gliadin AB IgA, Unit 1.6 U/mL; Gliadin AB IgG, Deaminated NEGATIVE (NEGATIVE)
== END | disposition home or self-care (01) ==
LOC: LABWHC1 13:03
PROVIDERS: ATTEND Nurse Practitioner
DX: R19.4 Change in bowel habit (principal)
CPT/HCPCS: 36415; 83516

== ENCOUNTER → 2021-03-20 | Outpatient (CLI) | payer BC, OTHER ==
--- NOTE | 2021-03-22 16:46 | US ---
EXAMINATION TYPE: US pelvis complete transvag DATE OF EXAM: 03/20/2021 COMPARISON: US 2019 CLINICAL HISTORY: 21-year-old female R10.2 PELVIC AND PERINEAL PAIN. Intermittent pelvic pain x coupl e months, 0, patient on control TECHNIQUE: Transabdominal sonographic images of the pelvis were acquired. Transvaginal sonographic i mages were medically necessary to better assess the following anatomy: left ovary Date of LMP: 3 months ago FINDINGS: EXAM MEASUREMENTS: Uterus: 7.5 x 3.5 x 3.9 cm Endometrial Stripe: 0.6 cm Right Ovary: 2.3 x 1.3 x 1.3 cm Left Ovary: not seen 1. Uterus: Retroverted and otherwise without any gross abnormality. 2. Endometrium: fluid in endocervical canal. The stripe itself appears within normal limits. 3. Right Ovary: wnl 4. Left Ovary: not seen 5. Bilateral Adnexa: wnl 6. Posterior cul-de-sac: wnl IMPRESSION: 1. Unable to visualize the left ovary. 2. Retroverted uterus. Endometrial stripe measuring 6 mm. 3. There is fluid within the endocervical canal. Findings may reflect menstruation. However, given e findings on the 2019 ultrasound, correlate with findings on direct visualization and Pap smear.
== END ==
LOC: RADUSWWP 14:17
PROVIDERS: ATTEND Family Medicine
DX: N85.4 Malposition of uterus (principal)
CPT/HCPCS: 76830; 76856

== ENCOUNTER → 2021-09-11 | Outpatient (CLI) | payer BC, OTHER ==
[2021-09-11 19:26] LABS: Rheumatoid Factor, Qnt <10 IU/mL (0-15)
[2021-09-11 19:46] LABS: ALT 13 U/L (8-44); AST 15 U/L (13-35); Albumin 4.3 g/dL (3.8-4.9); Albumin/Globulin Ratio 1.72 (1.60-3.17); Alkaline Phosphatase 72 U/L (41-126); BUN/Creat Ratio 17.67 Ratio (12.00-20.00); Blood Urea Nitrogen 10.6 mg/dL (9.0-27.0); Calcium 9.4 mg/dL (8.7-10.3); Carbon Dioxide 20.7 mmol/L (20.0-27.5); Chloride 106 mmol/L (96-109); Creatine Kinase 42 U/L (26-186); Globulin 2.5 g/dL (1.6-3.3); Glucose 109 mg/dL (70-110); Non-African American GFR(CKD) 129.4 (60.0-200.0); Potassium 4.1 mmol/L (3.5-5.5); Sodium 139 mmol/L (135-145); Total Protein 6.8 g/dL (6.2-8.2); Uric Acid 3.1 mg/dL (2.9-7.7)
== END | disposition home or self-care (01) ==
LOC: LABWHC1 11:01
PROVIDERS: ATTEND Nurse Practitioner Adult Health
DX: M79.10 Myalgia, unspecified site (principal); N20.0 Calculus of kidney; K29.70 Gastritis, unspecified, without bleeding
CPT/HCPCS: 36415; 80053; 82550; 82607; 82746; 84550; 85652; 86038; 86140; 86431

== ENCOUNTER → 2021-12-09 | Outpatient (CLI) | payer BC, OTHER ==
[2021-12-09 11:20] LABS: Basophils % (A) 0 %; Eosinophils # (A) 0.1 k/uL (0-0.7); Eosinophils % (A) 1 %; HCT 42.9 % (34.0-46.0); HGB 13.5 gm/dL (11.4-16.0); Lymphocytes # (A) 1.7 k/uL (1.0-4.8); Lymphocytes % (A) 20 %; MCH 27.9 pg (25.0-35.0); MCHC 31.5 g/dL (31.0-37.0); MCV 88.7 fL (80.0-100.0); Mean Platelet Volume 7.7; Monocytes # (A) 0.3 k/uL (0-1.0); Monocytes % (A) 4 %; Neutrophils # (A) 6.6 k/uL (1.3-7.7); Neutrophils % (A) 74 %; Platelet Count 290 k/uL (150-450); RBC 4.84 m/uL (3.80-5.40); RDW 12.7 % (11.5-15.5); WBC 8.9 k/uL (3.8-10.6)
[2021-12-09 15:09] LABS: Protein, Total 6.7 g/dL (6.2-8.2)
[2021-12-09 15:12] LABS: Hepatitis A Antibody IgM Nonreactive (Nonreactive); Hepatitis B Core IgM Nonreactive (Nonreactive); Hepatitis B Surface Antigen Nonreactive (Nonreactive); Hepatitis C IgG Antibody Nonreactive (Nonreactive)
[2021-12-09 16:16] LABS: ALT 24 U/L (8-44); AST 20 U/L (13-35); African American GFR (CKD) 146.1 (60.0-200.0); Albumin 4.3 g/dL (3.8-4.9); Albumin/Globulin Ratio 1.83 (1.60-3.17); Alkaline Phosphatase 85 U/L (41-126); BUN/Creat Ratio 10.05 Ratio (12.00-20.00); Blood Urea Nitrogen 6.5 mg/dL (9.0-27.0); Calcium 9.4 mg/dL (8.7-10.3); Carbon Dioxide 22.3 mmol/L (20.0-27.5); Chloride 105 mmol/L (96-109); Chol/HDL Ratio 3.57 Ratio; Globulin 2.3 g/dL (1.6-3.3); Glucose 81 mg/dL (70-110); LDL Cholesterol,Calculated 88.1 mg/dL (0.0-131.0); Non-African American GFR(CKD) 126.1 (60.0-200.0); Potassium 4.7 mmol/L (3.5-5.5); Sodium 140 mmol/L (135-145); Total Protein 6.6 g/dL (6.2-8.2)
[2021-12-09 16:17] LABS: % Iron Saturation 24.95 (12.00-45.00); Ferritin 59.7 ng/mL (10.0-291.0); Iron 109 ug/dL (50-170); Total Iron Binding Capacity 437 ug/dL (228-460)
[2021-12-09 17:43] LABS: HIV 2 AB Non-Reactive (Non-Reactive); HIV AB P24 Non-Reactive (Non-Reactive); HIV P24 AG Non-Reactive (Non-Reactive)
[2021-12-10 17:15] LABS: Albumin 3.77 g/dL (3.80-4.90); Gamma Globulin 0.84 g/dL (0.70-1.50)
== END | disposition home or self-care (01) ==
LOC: LABWHC1 10:31
PROVIDERS: ATTEND Internal Medicine
DX: J45.909 Unspecified asthma, uncomplicated (principal); K21.9 Gastro-esophageal reflux disease without esophagitis; D64.9 Anemia, unspecified; R50.9 Fever, unspecified
CPT/HCPCS: 36415; 80053; 80061; 80074; 82607; 82728; 82746; 83540; 83550; 84165; 84443; 85025; 86038; 86780; 87390

== ENCOUNTER → 2022-04-21 | Outpatient (CLI) | payer BC, OTHER ==
[2022-04-21 18:09] LABS: Basophils # (A) 0.05 X 10*3/uL (0.00-0.10); Basophils % (A) 0.7 %; Eosinophils # (A) 0.06 X 10*3/uL (0.04-0.35); Eosinophils % (A) 0.9 %; HCT 43.3 % (37.2-46.3); HGB 13.3 g/dL (12.0-15.0); Immature Grans, Automated 0.4 %; Lymphocytes # (A) 1.78 X 10*3/uL (0.90-5.00); Lymphocytes % (A) 26.5 %; MCH 27.5 pg (27.0-32.0); MCHC 30.7 g/dL (32.0-37.0); MCV 89.6 fL (80.0-97.0); Mean Platelet Volume 10.2 fL (9.5-12.2); Monocytes # (A) 0.42 X 10*3/uL (0.20-1.00); Monocytes % (A) 6.3 %; NRBC Per 100 WBC 0 /100 WBCS (0.0-0.0); Neutrophils # (A) 4.38 X 10*3/uL (1.80-7.70); Neutrophils % (A) 65.2 %; Platelet Count 299 X 10*3/uL (140-440); RBC 4.83 X 10*6/uL (4.10-5.20); RDW 12.6 % (11.5-14.5); WBC 6.72 X 10*3/uL (4.50-10.00)
[2022-04-21 20:32] LABS: African American GFR (CKD) 147.4 (60.0-200.0); Albumin 4.2 g/dL (3.8-4.9); Albumin/Globulin Ratio 1.88 (1.60-3.17); Anion Gap 10.8 mmol/L (10.00-18.00); BUN/Creat Ratio 13.57 Ratio (12.00-20.00); Blood Urea Nitrogen 8.4 mg/dL (9.0-27.0); Calcium 9.3 mg/dL (8.7-10.3); Carbon Dioxide 24.2 mmol/L (20.0-27.5); Globulin 2.3 g/dL (1.6-3.3); Non-African American GFR(CKD) 127.2 (60.0-200.0); Potassium 4.6 mmol/L (3.5-5.5); T4, Free (Free Thyroxine) 1.33 ng/dL (0.800-1.800); Total Bilirubin 0.4 mg/dL (0.30-1.20); Total Protein 6.5 g/dL (6.2-8.2)
== END | disposition home or self-care (01) ==
LOC: LABWHC1 12:16
PROVIDERS: ATTEND Nurse Practitioner Acute Care
DX: H53.9 Unspecified visual disturbance (principal); H93.19 Tinnitus, unspecified ear; H81.93 Unspecified disorder of vestibular function, bilateral; R51.9 Headache, unspecified
CPT/HCPCS: 36415; 80053; 82306; 82607; 84207; 84439; 84443; 84481; 85025

== ENCOUNTER → 2022-10-07 | Outpatient (CLI) | payer BC, OTHER ==
[2022-10-07 15:47] LABS: ALT 11 U/L (8-44); AST 14 U/L (13-35); Albumin 4.1 d/dL (3.8-4.9); Albumin/Globulin Ratio 1.86 Ratio (1.60-3.17); Alkaline Phosphatase 61 U/L (41-126); Blood Urea Nitrogen 12.2 mg/dL (9.0-27.0); Calcium 9.3 mg/dL (8.7-10.3); Carbon Dioxide 25.3 mmol/L (21.6-31.8); Chloride 109 mmol/L (96-109); Globulin 2.2 d/dL (1.6-3.3); Glucose 80 mg/dL (70-110); Potassium 4.7 mmol/L (3.5-5.5); Sodium 141 mmol/L (135-145); Total Bilirubin 0.2 mg/dL (0.3-1.2); Total Protein 6.3 d/dL (6.2-8.2)
[2022-10-07 20:36] LABS: Basophils # (A) 0.07 X 10*3/uL (0.00-0.10); Basophils % (A) 1.1 %; Eosinophils % (A) 1.5 %; HCT 41.9 % (37.2-46.3); HGB 12.6 d/dL (12.0-15.0); Lymphocytes # (A) 1.62 X 10*3/uL (0.90-5.00); MCH 28.4 pg (27.0-32.0); MCHC 30.1 d/dL (32.0-37.0); MCV 94.6 FL (80.0-97.0); Mean Platelet Volume 10.8 FL (9.5-12.2); Monocytes # (A) 0.46 X 10*3/uL (0.20-1.00); Monocytes % (A) 7.1 %; NRBC Per 100 WBC 0.02 X 10*3/uL (0.00-0.01); Neutrophils # (A) 4.18 X 10*3/uL (1.80-7.70); Neutrophils % (A) 64.5 %; Platelet Count 261 X 10*3/uL (140-440); RBC 4.43 X 10*6/uL (4.10-5.20); RDW 12.5 % (11.5-14.5); WBC 6.48 X 10*3/uL (4.50-10.00)
[2022-10-08 04:45] LABS: EBV - VCA IgM <10.0 U/mL (<36.0)
== END | disposition home or self-care (01) ==
LOC: LABWHC1 10:25
PROVIDERS: ATTEND Internal Medicine
DX: J02.9 Acute pharyngitis, unspecified (principal)
CPT/HCPCS: 36415; 80053; 85025; 86645; 86665; 87070

== ENCOUNTER → 2022-10-07 | Outpatient (CLI) | payer BC, OTHER ==
--- NOTE | 2022-10-07 10:30 | CT ---
EXAMINATION TYPE: CT brain wo con CT DLP: 999 mGycm, Automated exposure control for dose reduction was used. DATE OF EXAM: 10/07/2022 10:24 AM COMPARISON: Prior CT Brain from 04/15/2020 . CLINICAL INDICATION:Female, 22 years old with history of S09.90XA UNSPECIFIED INJURY OF HEAD, INITIAL ENCOU, hit head TECHNIQUE: Brain: Multiple axial CT images of the brain were obtained without IV contrast. Coronal and sagittal reformats reviewed. FINDINGS: Brain: Extra-axial spaces: No abnormal extra-axial fluid collections. Ventricular system: Within normal limits Cerebral parenchyma: No acute intraparenchymal hemorrhage or mass effect. The reilly-white junction is well differentiated. Cerebellum: Unremarkable. Mass effect: No evidence of midline shift. Intracranial vasculature: unremarkable Soft tissues: Normal. Calvarium/osseous structures: No depressed skull fracture. Paranasal sinuses and mastoid air cells: Clear Visualized orbits: Orbital contents are intact. IMPRESSION: No acute intracranial process or significant change from prior.
== END | disposition home or self-care (01) ==
LOC: RADCTMAIN 10:02
PROVIDERS: ATTEND Internal Medicine
DX: S09.90XA Unspecified injury of head, initial encounter (principal)
CPT/HCPCS: 70450

== ENCOUNTER → 2022-11-09 | Outpatient (CLI) | payer BC, OTHER ==
[2022-11-09 16:33] LABS: Basophils # (A) 0.08 X 10*3/uL (0.00-0.10); Basophils % (A) 1.1 %; Eosinophils # (A) 0.07 X 10*3/uL (0.04-0.35); Eosinophils % (A) 0.9 %; HGB 14.2 d/dL (12.0-15.0); Lymphocytes # (A) 2.06 X 10*3/uL (0.90-5.00); Lymphocytes % (A) 27.9 %; MCH 29.2 pg (27.0-32.0); MCHC 32.3 d/dL (32.0-37.0); MCV 90.3 FL (80.0-97.0); Mean Platelet Volume 10.5 FL (9.5-12.2); Monocytes # (A) 0.51 X 10*3/uL (0.20-1.00); Monocytes % (A) 6.9 %; NRBC Per 100 WBC 0 X 10*3/uL (0.00-0.01); Neutrophils # (A) 4.62 X 10*3/uL (1.80-7.70); Neutrophils % (A) 62.7 %; Platelet Count 286 X 10*3/uL (140-440); RBC 4.87 X 10*6/uL (4.10-5.20); RDW 12.3 % (11.5-14.5); WBC 7.38 X 10*3/uL (4.50-10.00)
[2022-11-09 17:40] LABS: Erythrocyte Sedimentation Rate 13 mm/Hr (0-20)
[2022-11-09 19:55] LABS: Cyclic Citrull Pep IgG Unit <1.5 U/mL (<=3.9); Cyclic Citrullinated Pep IgG Negative
[2022-11-09 20:34] LABS: ALT 19 U/L (8-44); AST 15 U/L (13-35); BUN/Creat Ratio 15.83 Ratio (12.00-20.00); Blood Urea Nitrogen 9.5 mg/dL (9.0-27.0); Calcium 9.7 mg/dL (8.7-10.3); Carbon Dioxide 21.6 mmol/L (21.6-31.8); Chloride 105 mmol/L (96-109); Creatine Kinase 53 U/L (26-186); Glucose 94 mg/dL (70-110); Potassium 4.5 mmol/L (3.5-5.5); Rheumatoid Factor, Qnt <15 IU/mL (0-15); Sodium 139 mmol/L (135-145); T4, Free (Free Thyroxine) 1.18 ng/dL (0.80-1.80); Uric Acid 2.5 mg/dL (2.9-7.7)
[2022-11-10 10:40] LABS: HLA B27 NEGATIVE
[2022-11-10 11:18] LABS: Angiotensin-1 Converting Enz. 17 U/L (8-52)
== END | disposition home or self-care (01) ==
LOC: LABWHC1 11:16
PROVIDERS: ATTEND Orthopaedic Surgery
DX: M25.531 Pain in right wrist (principal); M25.532 Pain in left wrist; R20.2 Paresthesia of skin; R53.1 Weakness
CPT/HCPCS: 36415; 80048; 82164; 82306; 82550; 83520; 84439; 84443; 84450; 84460; 84550; 85025; 85652; 86038; 86140; 86200; 86431; 86812

== ENCOUNTER → 2023-06-23 | Outpatient (CLI) | payer BC, OTHER ==
--- NOTE | 2023-06-24 11:25 | US ---
EXAMINATION TYPE: US st tissue neck DATE OF EXAM: 06/23/2023 COMPARISON: NONE CLINICAL INDICATION: Female, 23 years old with history of R590 LOCALIZED ENLARGED LYMPH NODES; Bilateral neck scanned, patient feels palpable right lateral neck. At the palpable site, there are multiple lymph nodes - largest measuring 1.7 x 0.5 x 0.7 cm Left lateral neck scanned for comparison. Largest measuring 1.4 x 0.5 x 0.7 cm IMPRESSION: Palpable site along the right side of the neck shows clustered prominent and mildly thickened but non enlarged lymph nodes. Similar but slightly smaller nodes are present on the left side of the neck. Th sina are likely reactive/post inflammatory. Clinical follow-up can be performed. Ultrasound follow-up can be considered in 2-3 months.
== END | disposition home or self-care (01) ==
LOC: RADUSWWP 14:42
PROVIDERS: ATTEND Internal Medicine
DX: R59.0 Localized enlarged lymph nodes (principal)
CPT/HCPCS: 76536

== ENCOUNTER → 2023-09-28 | Outpatient (CLI) | payer BC, OTHER ==
--- NOTE | 2023-10-02 15:53 | US ---
EXAMINATION TYPE: US thyroid st tissue head/neck DATE OF EXAM: 09/28/2023 COMPARISON: Thyroid ultrasound 06/23/2023 CLINICAL INDICATION: Female, 23 years old with history of R59.0 LOCALIZED ENLARGED LYMPH NODES; f/u l ymphadenopathy FINDINGS/IMPRESSION: Bilateral neck scanned, lymphadenopathy noted on the right again to lesser degree than prior US. Larg est lymph node measures 1.7x1.2x0.6cm. Previously measured 1.7 x 1.5 x 0.9 cm. Lymph node demonstrate s a reniform shape with central fatty hilum and no increased color flow. There are smooth margins. Th sina are favored to represent represent a reactive/post inflammatory lymph node due to slight decrease in size and benign morphology. Consider follow-up ultrasound in 6 months.
== END | disposition home or self-care (01) ==
LOC: RADUSWWP 07:03
PROVIDERS: ATTEND Internal Medicine
DX: R59.0 Localized enlarged lymph nodes (principal)
CPT/HCPCS: 76536

== ENCOUNTER → 2023-12-08 | Outpatient (CLI) | payer BC, OTHER ==
--- NOTE | 2023-12-29 16:31 | CT ---
Patient: Rubina Payne M Ordering Physician: Unknown, Unknown ID: [id number] Phone, Pager: Phone: N /A Pager: N/A : 2000 Age/Gender: 23Y, F Primary Location: N/A Procedure: CT SOFT TISSUE NECK W CON Study Date: 12/08/2023 3:15:00 PM EXAMINATION TYPE: CT soft tissue neck w con DATE OF EXAM: 12/23/2023 COMPARISON: None HISTORY: Right-sided neck swelling CT DLP: 278.2 mGycm CONTRAST: Patient injected with 100 mL of Isovue 300. TECHNIQUE: Axial images at 3 mm thick sections. Reconstructed images in the coronal plane and sagitt al plane are reviewed. FINDINGS: Limited CT sections are obtained the lung apices. The lung apices appear clear. CT neck: The torus tubarius and fossa of Rosenmuller are normal. Delivery Engineer spaces are normal. Para nasal sinuses and mastoid air cells are clear. Parotid glands appear normal and symmetrical. Submandibular glands, are normal. Parapharyngeal spac es are normal. Small submental lymph nodes are present, the largest measures 0.6 cm. Small right submandibular gland lymph nodes are present. Submandibular glands appear symmetrical. Palpable area is marked posterior to the right submandibular gland. No directly underlying masses are identified. There is a 0.9 cm right jugulodigastric lymph node which is at the upper limits of tamra l for size. Example images series 3 image 44, series 5 image 29 Some asymmetry within the hypopharynx along the right vallecula adjacent to the epiglottis. Example i mage series 3 image 43 recommend direct visualization. Vocal cord level appear symmetrical. Thyroid as visualized is normal. Osseous structures are normal. Lung apices appear clear where visualized. X line trachea appears clear. IMPRESSION: 1. There is a lymph node at the upper limits of normal for size in the right jugulodigastric region c ould correlate with the palpable region. 2. Possible debris or soft tissue mass within the vallecula to the right of midline. Direct visualiza tion recommended.
== END | disposition home or self-care (01) ==
LOC: RADCTMAIN 14:58
PROVIDERS: ATTEND Otolaryngology
DX: R22.1 Localized swelling, mass and lump, neck (principal)
CPT/HCPCS: 70491; Q9967

== ENCOUNTER 2024-01-06 08:20 | Day surgery (SDC) | payer BC, OTHER ==
--- NOTE | 2024-01-05 17:34 | HP ---
HISTORY AND PHYSICAL CHIEF COMPLAINT: Vallecular mass. HISTORY OF PRESENT ILLNESS: This patient is a 23-year-old female, who was recently seen in my office complaining of having a sensation of swollen glands in her neck for the past 6 months. The patient states that she experienced an episode of COVID and also has had a sinus infection. Since that time, she has had issues with her throat and also complained of a significant amount of postnasal drainage. She does have a history of GERD (gastroesophageal reflux disorder). At the time that she was seen in my office, clinical examination of the oropharynx including an indirect laryngoscopy revealed a suspicious area near the base of tongue and also the vallecula. A CT scan of the neck was performed, and this revealed a few mildly enlarged lymph nodes and also a possible soft tissue mass in the vallecula just to the right of the midline. It was recommended the patient undergo a suspension microlaryngoscopy, biopsy, and possible laser of this area under general anesthesia. PAST MEDICAL HISTORY: Reveals the patient has allergies to ampicillin, penicillin, and morphine. PREVIOUS SURGERIES: Include: 1. Tonsillectomy. 2. Adenoidectomy. 3. Appendectomy. 4. Ablation for endometriosis. She is 0 para, 0 , 0 miscarriage. CURRENT MEDICATIONS: Include: 1. Singulair. 2. Protonix. SOCIAL HISTORY: She is a nonsmoker and has never used any tobacco products. REVIEW OF SYSTEMS: Positive with respect to the gastrointestinal system, which is positive for GERD (gastroesophageal reflux disorder). The remainder of the review of systems was unremarkable. PHYSICAL EXAMINATION: GENERAL: The patient is a very pleasant 23-year-old female, who was alert and cooperative. HEENT: The patient is normocephalic. Tympanic membranes are normal. Middle ear spaces are free of any fluid or infection. Pupils equal, round, and reactive to light and accommodation. Extraocular movements within normal limits. Intranasal examination reveals moderate septal deviation with compensatory hypertrophy of the inferior turbinates. Examination of the oropharynx including indirect laryngoscopy is as described above in the history of present illness and will not be repeated here. There is no palpable lymphadenopathy or neck masses. Remainder of the head and neck exam including cranial nerves 2 through 12 are within normal limits. CHEST/CARDIOVASCULAR: Both lung nicolas are clear to percussion and auscultation. The patient is in regular sinus rhythm. S1, S2 present without any murmurs. ABDOMEN: There is no evidence of any masses, megaly, or tenderness. The abdomen is soft. SKIN: Unremarkable. MUSCULOSKELETAL: Within normal limits NEUROLOGICAL: Within normal limits. PELVIC/RECTAL: This should be printed. The pelvic/rectal exam is deferred at this time because the patient has it done on a regular basis at her family physician's office. The remainder of physical exam is unremarkable. ASSESSMENT: Vallecular mass. PLAN: The patient is scheduled undergo a suspension microlaryngoscopy with biopsy and possible CO2 laser of vallecular mass under general anesthesia in the a.m. Attention, RNs in the pre-surgical area, I have not ordered any pre-surgical prophylactic antibiotics for this patient. If the Pharmacy Department sends any pre- surgical prophylactic antibiotics to the pre-surgical area for this patient, that order should be cancelled and the medication should be returned to the recovery room. Also make sure that the patient's account is credited appropriately. I have ordered for this patient to receive 1000 mg of Ofirmev IV to be given once an IV line has been established. I have discussed the risks, benefits and alternative therapies for the above-mentioned procedure and for both sedation/analgesia as well as necessary blood product administration, if indicated, as they pertain to this patient. The patient has indicated her understanding and acceptance of the risks and procedures discussed. MMJUANITAL / IJN: [id number] /
[~2024-01-06 08:20] MED LIST changes: +LIDOCAINE 1% (10MG/ML) FOR IV START INTRADERMA PRN; +MIDAZOLAM 2 MG/2 ML VIAL IV PRN; +Pre Op ABX Message 1 EACH MISC MISCELLANE ONE; -SODIUM CHLORIDE 0.9% 1,000 ML IV SCH; +fentaNYL (PF) 50 MCG/ML 2 ML AMP IV PRN
[2024-01-06] MEDS: DEXAMETHASONE SOD PHOSPHATE 4 MG/ML 1 ML VIAL IV ONE (08:34)
[2024-01-06] MEDS: ACETAMINOPHEN IV (For NPO) 1,000 MG in EMPTY BAG 1 BAG IVPB ONE (08:34)
[2024-01-06] MEDS: ONDANSETRON 4 MG/2 ML VIAL IVP ONE (08:34)
[2024-01-06] MEDS: LACTATED RINGERS 1,000 ML IV SCH (08:35)
[2024-01-06] MEDS: IV FLUID CONTINUATION 1,000 ML IV ONE ×2 (08:36→12:30)
[2024-01-06] MEDS: FAMOTIDINE 20 MG/2 ML VIAL IV STA (09:13)
[2024-01-06] MEDS ORDERED: DEXAMETHASONE SOD PHOSPHATE 10 MG/ML 1 ML VIAL ONE (10:10)
[2024-01-06] MEDS ORDERED: SUCCINYLCHOLINE CHLORIDE 200 MG/10 ML VIAL IV ONE (10:10)
[2024-01-06] MEDS ORDERED: KETAMINE HCL IN 0.9 % NACL 50 MG/5 ML SYRINGE ONE (10:10)
[2024-01-06] MEDS ORDERED: LIDOCAINE 1% INJ 10MG/ML (20 ML MDV) ONE (10:10)
[2024-01-06] MEDS ORDERED: PROPOFOL 10 MG/ML 20 ML VIAL IV ONE (10:10)
[2024-01-06] MEDS ORDERED: MIDAZOLAM 2 MG/2 ML VIAL ONE (10:10)
[2024-01-06] MEDS ORDERED: fentaNYL (PF) 50 MCG/ML 2 ML AMP ONE (10:10)
[2024-01-06 11:25] VITALS: TEMP 97
[2024-01-06 11:38] VITALS: RESP 16
[2024-01-06] MEDS: HYDROmorphone 0.5 MG/0.5 ML SYRINGE IVP PRN (11:56)
[2024-01-06 13:19] VITALS: BP 108/72; PULSE 82
--- NOTE | 2024-01-08 20:25 | OP ---
OPERATIVE REPORT DATE OF SERVICE : 01/06/2024 PREOPERATIVE DIAGNOSIS: Right vallecular mass. POSTOPERATIVE DIAGNOSIS: Right vallecular mass, final pathology pending. ANESTHESIA: General. OPERATIVE PROCEDURE: Suspension microlaryngoscopy with multiple biopsies of a right vallecular mass and CO2 vaporization of right vallecular mass. COMPLICATIONS: None. ESTIMATED BLOOD LOSS: Less than 1 mL. DESCRIPTION OF PROCEDURE: The patient was placed on the operating table in supine position. After uneventful induction and endotracheal intubation, satisfactory general anesthesia was obtained. Next, the patient was draped in usual customary fashion. Following this, a laryngoscope was introduced into the patient's oropharynx and the entire hypopharynx including the floor of the mouth, right and left piriform sinuses, base of tongue, epiglottis were inspected. It was noted in the vallecula that there was a fleshy appearing mass located from the right vallecula just slightly lateral to the midline. Next, the tip of the laryngoscope was placed at the laryngeal introitus and the laryngoscope was suspended on the patient's chest using the Lewy apparatus. Next, under magnified visualization, using the Zeiss operating microscope, multiple biopsies of the vallecular mass were obtained without difficulty. Most of the remaining portion of this right vallecular mass was vaporized using the CO2 laser on the appropriate setting. Both true vocal cords appeared to be free of any obvious disease. The patient was given 10 mg of Decadron intraoperatively to reduce postoperative edema. At this point, the procedure was terminated. There were no intraoperative complications. The patient tolerated the procedure well and was returned to the recovery room in satisfactory condition. MMODL / IJN: [id number] /
== END 2024-01-06 13:51 | disposition home or self-care (01) ==
LOC: OR 08:20
PROVIDERS: ATTEND Otolaryngology
DX: J38.7 Other diseases of larynx (principal); K21.9 Gastro-esophageal reflux disease without esophagitis; J45.909 Unspecified asthma, uncomplicated; M79.7 Fibromyalgia; F41.8 Other specified anxiety disorders; Z88.0 Allergy status to penicillin; Z88.5 Allergy status to narcotic agent; Z88.1 Allergy status to other antibiotic agents; Z88.8 Allergy status to other drugs, medicaments and biological substances; Z79.899 Other long term (current) drug therapy
CPT/HCPCS: 81025; 84703; 88305

== ENCOUNTER → 2024-03-14 | Outpatient (CLI) | payer BC, OTHER ==
--- NOTE | 2024-03-14 15:01 | XR ---
EXAMINATION TYPE: XR chest 2V DATE OF EXAM: 03/14/2024 1:03 PM COMPARISON: Chest radiographs from 02/04/2015, CT chest abdomen pelvis 07/23/2020 TECHNIQUE: XR chest 2V Frontal and lateral views of the chest. CLINICAL INDICATION:Female, 24 years old with history of DECREASED LUNG SOUNDS R06.89; FINDINGS: Lungs/Pleura: There is no evidence of pleural effusion, focal consolidation, or pneumothorax. Pulmonary vascularity: Unremarkable. Heart/mediastinum: Cardiomediastinal silhouette is unremarkable. Musculoskeletal: No acute osseous pathology. IMPRESSION: No acute cardiopulmonary disease/process. [facility], , 03/14/2024 2:59 PM
== END | disposition home or self-care (01) ==
LOC: RADXRMAIN 12:39
PROVIDERS: ATTEND Internal Medicine
DX: R06.89 Other abnormalities of breathing (principal)
CPT/HCPCS: 71046

== ENCOUNTER → 2024-04-05 | Outpatient (CLI) | payer BC, OTHER | END | disposition home or self-care (01) | LOC: LABWHC1 14:09 | PROVIDERS: ATTEND Internal Medicine Critical Care Medicine | DX: R53.83 Other fatigue (principal) | CPT/HCPCS: 36415; 82306 ==

== ENCOUNTER → 2024-04-10 | Outpatient (CLI) | payer BC, OTHER ==
--- NOTE | 2024-04-12 16:02 | US ---
EXAMINATION TYPE: US kidneys/renal and bladder DATE OF EXAM: 04/10/2024 COMPARISON: NONE CLINICAL INDICATION: Female, 24 years old with history of N39.0 FREQUENT UTI; UTI for 4 weeks TECHNIQUE: Grayscale imaging of the bilateral kidneys and urinary bladder: FINDINGS: EXAM MEASUREMENTS: Right Kidney: 10.4 x 3.9 x 4.2 cm Left Kidney: 10.9 x 4.5 x 6.3 cm Right Kidney: No hydronephrosis or masses seen Left Kidney: No hydronephrosis or masses seen Bladder: wnl IMPRESSION: Unremarkable renal ultrasound [facility], , 04/12/2024 3:59 PM
== END | disposition home or self-care (01) ==
LOC: RADUSWWP 16:23
PROVIDERS: ATTEND Internal Medicine
DX: N39.0 Urinary tract infection, site not specified (principal); J45.909 Unspecified asthma, uncomplicated
CPT/HCPCS: 76770

== ENCOUNTER → 2024-05-14 | Outpatient (CLI) | payer BC, OTHER ==
--- NOTE | 2024-05-14 12:41 | CT ---
EXAMINATION TYPE: CT brain wo con DATE OF EXAM: 05/14/2024 12:32 PM COMPARISON: 10/07/2022 CLINICAL INDICATION: Female, 24 years old with history of H53.8 VISUAL DISTURBANCES, uneven pupils, n o head injury TECHNIQUE: CT of the brain is performed utilizing 3 mm thick sections through the posterior fossa and 3 mm thick sections through the remaining calvarium. Study is performed within 24 hours of arrival to the hospital. Contrast used: mL of , (none if empty) CT DLP: 1070 mGycm, Automated exposure control for dose reduction was used. FINDINGS: No abnormal hyperdensity is present to suggest an acute intracranial hemorrhage. No mass lesion is evident. No acute infarcts are evident. Ventricles and sulci are appropriate for the patient age. Paranasal sinuses and mastoid air cells within the [id number] are clear. IMPRESSION: 1. No acute intracranial process. Follow up MRI can be performed as clinically indicated. [facility], , 05/14/2024 12:39 PM
== END | disposition home or self-care (01) ==
LOC: RADCTMAIN 12:17
PROVIDERS: ATTEND Internal Medicine
DX: H53.8 Other visual disturbances (principal)
CPT/HCPCS: 70450